=== PATIENT | male | born 1960 | race Caucasian/White ===

== ENCOUNTER → 2019-08-23 12:46 | Outpatient (CLI) | payer MEDICAID | END | disposition home or self-care (01) | LOC: D.RAD 12:46 | DX: R06.02 Shortness of breath (principal) ==

== ENCOUNTER → 2019-12-08 16:16 | Outpatient (CLI) | payer MEDICAID ==
[2019-12-08 17:11] LABS: HEMATOCRIT 37.8 % (42.0-54.0); HEMOGLOBIN 13.4 g/dL (13.5-17.5); MCH 33.5 pg (26.0-34.0); MCHC 35.4 g/dL (31.0-37.0); MCV 94.5 fL (80.0-100.0); RDW 13.8 % (11.5-14.5)
== END | disposition home or self-care (01) ==
LOC: D.LABREF 16:16
PROVIDERS: ATTEND Legal Medicine
DX: L03.031 Cellulitis of right toe (principal)